=== PATIENT | female | born 1985 | race Caucasian/White ===

== ENCOUNTER → 2019-09-24 | Outpatient (CLI) | payer OTHER ==
[2019-09-24 15:13] LABS: Prealbumin, Blood 25.7 mg/dL (20.0-40.0)
[2019-09-29 09:49] LABS: Prolactin 6.1 ng/mL
== END | disposition home or self-care (01) ==
LOC: LAB 13:07 → LAB SHORT 13:07
PROVIDERS: Nurse Practitioner Family
DX: N64.52 Nipple discharge (principal); F41.8 Other specified anxiety disorders
CPT/HCPCS: 82607; 84134; 84146

== ENCOUNTER → 2020-04-05 | Outpatient (CLI) | payer OTHER ==
[2020-04-07 13:32] LABS: CORONAVIRUS (COVID19) CSH-NRL Negative (Negative)
== END | disposition home or self-care (01) ==
LOC: LAB 17:27 → LAB SHORT 17:27
PROVIDERS: Nurse Practitioner Family
DX: Z01.812 Encounter for preprocedural laboratory examination (principal); Z20.828 Contact with and (suspected) exposure to other viral communicable diseases
CPT/HCPCS: U0003

== ENCOUNTER → 2020-04-09 | Outpatient (CLI) | payer OTHER | END | disposition home or self-care (01) | LOC: LAB 13:10 → LAB SHORT 13:10 | DX: Z01.812 Encounter for preprocedural laboratory examination (principal); Z20.828 Contact with and (suspected) exposure to other viral communicable diseases | CPT/HCPCS: U0003 ==

== ENCOUNTER 2020-12-08 13:58 | Day surgery (SDC) | payer OTHER ==
[~2020-12-08] VITALS: Ht 165.1 cm; Wt 77.2 kg
[~2020-12-08 13:58] MED LIST: ALPR.5 PO; CELEXA40 M1 PO; OMEP20ER PO
--- NOTE | 2020-12-08 15:12 | NUR ---
12/08/20 1512 ALIYA OTTO PT UPDATED THAT PREVIOUS PROCEDURE IS RUNNING BEHIND. PT IS COMFORTABLE AND RESTING. CALL LIGHT WITHIN REACH.
--- NOTE | 2020-12-08 16:13 | NUR ---
12/08/20 1613 Boaz Sanchez PT REPORTS HAVING A "FAT LIP" FROM CHILD THROWING CELL PHONE AT HER. LEFT SIDE OF LOWER LIP HAS SMALL CUT AND IS RED. THIS WAS NOTED BEFORE LMA WAS PLACED.
--- NOTE | 2020-12-08 16:41 | NUR ---
12/08/20 4168 Gege Murray PATIENT TO PACU ON [facility] [place]. SHE IS AWAKE AND RESPONDS WHEN TALKED TO. SHE DOES STATE SHE FEELS TIRED BUT NO PAIN OR NAUSEA AT THIS TIME. SHE FALLS BACK TO SLEEP AFTER TALKING WITH HER BUT WAKES AGAIN EASILY WHEN SPOKEN TO. PATIENT IS STABLE AND PAIN FREE AT THIS TIME
--- NOTE | 2020-12-08 17:28 | NUR ---
12/08/20 1728 Gege Murray PATIENT WAS STABLE THROUGHOUT THE STEPDOWN PROCESS. NO PAIN OR NAUSEA AT ANY TIME. DISCHARGE INSTRUCTIONS DISCUSSED AND ALL QUESTIONS WERE ANSWERED. PATIENT WAS DISCHARGED HOME IN STABLE CONDITION
== END 2020-12-08 17:22 | disposition home or self-care (01) ==
LOC: ORSCSDS 13:58
PROVIDERS: Obstetrics & Gynecology
PROC: 0UBC7ZX Excision of Cervix, Via Natural or Artificial Opening, Diagnostic (ICD-10-PCS; principal; 2020-12-08 15:15)
DX: D06.9 Carcinoma in situ of cervix, unspecified (principal); K21.9 Gastro-esophageal reflux disease without esophagitis; Z79.899 Other long term (current) drug therapy
CPT/HCPCS: 88305; 88307; 88342; J0171; J1100; J1885; J2250; J2405; J2704; J3010; J7120

== ENCOUNTER 2021-02-27 05:52 | Day surgery (SDC) | payer OTHER ==
[~2021-02-27] VITALS: Ht 152.4 cm; Wt 76.2 kg
--- NOTE | 2021-02-27 07:04 | NUR ---
Ambulatory in Day Surgery History, Chart, Medications and Allergies reviewed before start of procedure.Patient confirms NPO status and agrees with scheduled surgery. Patient reports completing Chlorhexadine shower X2 prior to admission to hospital.Surgical site prepped with 2% Chlorhexidine cloth wipe.
[2021-02-27] MEDS ORDERED: IBUP800 PO (12:43)
[2021-02-27] MEDS ORDERED: DOCU100 PO (12:43)
[2021-02-27] MEDS ORDERED: ACET500 PO (12:43)
[2021-02-27] MEDS ORDERED: OXYC5 PO (12:44)
--- NOTE | 2021-02-27 17:46 | NUR ---
SHIFT SUMMARY PT IS A&OX4, VSS/RA, S/P LAVH, 3 INCISIONS/STERIS DRY/INTACT, PERIPAD CDI. PAIN MANAGED WITH 5 OXY, TORADOL IV; PT REP BEING UNABLE TO TAKE ORAL IBUPROFEN. WANDER PO; ZOFRAN GIVEN 2X. VOIDING WELL. IV RFA, IVF @ 125 MLS/HR. WILL REPORT TO ONCOMING RN.
--- NOTE | 2021-02-28 06:06 | NUR ---
LYING IN SEMI FOWLERS WITH EYES CLOSED. HAS RESTED OFF AND ON THIS SHIFT. HAS C/O GENERALIZED DISCOMFORT. WAS MEDICATED PRN FOR PAIN, GAS, AND DISCOMFORT PER EMAR. HAS BEEN ABLE TO AMBULATE TO [facility] WITHOUT ISSUES WITH STANDBY ASSIST. LAP SITES X3 CLOSED WITH STERI STRIPS REMAIN C/D/I. DENINES PAIN, DISCOMFORT, OR FURTHER NEEDS AT THIS TIME. STATES SHE IS LOOKING FOWARD TO GOING HOME AND WILL HAVE PLENTY OF HELP AT HOME. SAFETY MEASURES IN PLACE. WILL CONTINUE TO MONITOR AND ADDRESS NEEDS THEY ARISE. WILL GIVE HAND OFF TO ONCOMING SHIFT USING SBAR DURING BEDSIDE REPORT.
--- NOTE | 2021-02-28 07:34 | NUR ---
PT TO OR AT APROX 0725.
--- NOTE | 2021-02-28 09:20 | NUR ---
DISCHARGE SUMMARY PT DISCHARGED AT APPROX 0900. DISCHARGED VIA VEHICLE WITH SPOUSE. HARD COPIES OF PRESCRIPTIONS GIVEN. BELONGINGS TAKEN. VERBAL AND WRITTEN DISCHARGE INSTRUCTIONS GIVEN, PT VERBALIZED UNDERSTANDING. IV DISCONTINUED WNL.
--- NOTE | 2021-02-28 09:24 | NUR ---
02/28/21 0924 Trice Caputo VERIFICATIONS: EDIT CHART.
== END 2021-02-28 09:03 | disposition home or self-care (01) ==
LOC: ORSCMMR 05:52 → ORD 07:30 → ORSCMMR 10:04 → SURS 10:04 → ORSCMMR 02-28 09:03 → SURS 02-28 09:03
PROVIDERS: Obstetrics & Gynecology
PROC: 0UT7FZZ Resection of Bilateral Fallopian Tubes, Via Natural or Artificial Opening With Percutaneous Endoscopic Assistance (ICD-10-PCS; principal; 2021-02-27 07:30)
PROC: 0UT9FZZ Resection of Uterus, Via Natural or Artificial Opening With Percutaneous Endoscopic Assistance (ICD-10-PCS; principal; 2021-02-27 07:30)
DX: D06.9 Carcinoma in situ of cervix, unspecified (principal); K21.9 Gastro-esophageal reflux disease without esophagitis; F41.8 Other specified anxiety disorders; Z79.899 Other long term (current) drug therapy
CPT/HCPCS: 88307; 94762; A9270; J0171; J0690; J1100; J1885; J2250; J2405; J2704; J3010; J7120

== ENCOUNTER → 2021-03-15 | Outpatient (CLI) | payer OTHER ==
[~2021-03-15] MED LIST changes: +ACET500 PO; +DOCU100 PO; +IBUP800 PO; +OXYC5 PO
[2021-03-15 17:28] LABS: Source, Urine Clean Catch
[2021-03-15 19:19] LABS: Bilirubin, Urine Neg (Neg); Blood, Urine 5+ (Neg); Glucose Qualitative, Urine Neg (Neg); Ketones, Urine Neg (Neg); Leukocyte Esterase, Urine 3+ (Neg); Nitrite, Urine Neg (Neg); Protein, Urine 1+ (Neg); Specific Gravity, Urine 1.025 (1.003-1.022); Urobilinogen, Urine NORM (Normal)
[2021-03-15 19:28] LABS: Appearance, Urine Hazy (Clear); Color, Urine Yellow (P-Yellow)
[2021-03-15 19:30] LABS: White Blood Cells, Urine TNTC /hpf (0-5)
[2021-03-15 19:31] LABS: Bacteria Few /hpf; Squamous Epithelial Cells Few /hpf (Few)
== END | disposition home or self-care (01) ==
LOC: LAB SHORT 17:25 → LAB 17:25
PROVIDERS: Obstetrics & Gynecology
DX: R39.15 Urgency of urination (principal)
CPT/HCPCS: 81001; 87086

== ENCOUNTER → 2022-01-09 | Outpatient (CLI) | payer OTHER ==
[2022-01-11 11:01] LABS: HPV 16 Negative (Negative); HPV 18 Negative (Negative); HPV OTHER HR TYPES Negative (Negative)
== END | disposition home or self-care (01) ==
LOC: LAB SHORT 09:38 → LAB 09:38
PROVIDERS: Family Medicine
DX: Z01.419 Encounter for gynecological examination (general) (routine) without abnormal findings (principal)
CPT/HCPCS: 87624; G0123

== ENCOUNTER 2023-01-01 12:24 | Emergency (ER) | payer OTHER ==
[~2023-01-01] VITALS: Ht 165.1 cm; Wt 73.9 kg
[2023-01-01] MEDS ORDERED: METPRE4DP PO (14:56)
[2023-01-01] MEDS ORDERED: FAMO20 PO (14:57)
[2023-01-01 15:00] VITALS: BP 109/66
[2023-01-01] MEDS ORDERED: EPIPEN0.3 MG/0.1 IM (17:04)
== END 2023-01-01 15:09 | disposition home or self-care (01) ==
LOC: ER 12:24
DX: T78.40XA Allergy, unspecified, initial encounter (principal); L29.9 Pruritus, unspecified; R60.0 Localized edema; Z91.018 Allergy to other foods; Z79.899 Other long term (current) drug therapy
CPT/HCPCS: 96374; 96375; 99284-25; J2930

== ENCOUNTER → 2023-01-15 | Outpatient (CLI) | payer OTHER ==
[~2023-01-15] MED LIST changes: +EPIPEN0.3 MG/0.1 IM; +FAMO20 PO; +METPRE4DP PO
[2023-01-17 15:09] LABS: HPV 16 Negative (Negative); HPV 18 Negative (Negative); HPV OTHER HR TYPES Negative (Negative)
== END ==
LOC: LAB 14:54 → LAB SHORT 14:54
PROVIDERS: Family Medicine
DX: Z01.419 Encounter for gynecological examination (general) (routine) without abnormal findings (principal)
CPT/HCPCS: 87624; G0145